=== PATIENT | male | born 1985 | race African-American/Black ===

== ENCOUNTER 2018-02-03 18:42 | Emergency (ER) | payer MEDICAID, OTHER ==
[~2018-02-03] VITALS: Ht 182.9 cm; Wt 68.0 kg
[2018-02-03 18:47] VITALS: BP 115/84
[2018-02-03] MEDS ORDERED: PSEUDOEPHEDRINE HCL 30MG TABLET PO ONE (20:15)
[2018-02-03] MEDS ORDERED: IBUPROFEN 600MG TABLET PO ONE (20:15)
[2018-02-03] MEDS ORDERED: AMOXICILLIN/POTASSIUM CLAVULANATE 875/125MG TAB PO ONE (20:15)
[2018-02-03] MEDS ORDERED: NEOMYCIN-POLYMYXIN B-HYDROCORTISONE 1% OTIC SOLN 10ML LEFT EAR ONE (20:15)
== END 2018-02-03 21:40 | disposition home or self-care (01) ==
LOC: ER 18:42
DX: J02.9 Acute pharyngitis, unspecified (principal); H65.191 Other acute nonsuppurative otitis media, right ear; F12.10 Cannabis abuse, uncomplicated
CPT/HCPCS: 99284

== ENCOUNTER 2019-02-19 18:20 | Emergency (ER) | payer SELFPAY ==
[~2019-02-19] VITALS: Ht 175.3 cm; Wt 61.0 kg
[2019-02-19] MEDS ORDERED: SODIUM CHLORIDE 0.9% 1,000 ML IV ONE (21:02)
[2019-02-19] MEDS ORDERED: ONDANSETRON HCL 4MG/2ML INJ IV STA (21:02)
[2019-02-19] MEDS ORDERED: METOCLOPRAMIDE HCL 10MG/2ML VIAL IV STA (21:02)
[2019-02-19 21:47] LABS: BASOPHILS % 1.7 % (0.0-2.0); EOSINOPHILS % 1.5 % (0.0-5.0); HEMATOCRIT. 39.6 % (42.0-52.0); HEMOGLOBIN. 13.9 g/dL (14.0-18.0); LYMPHOCYTES % 38.4 % (20.0-50.0); MEAN CORPUSCULAR HEMOGLOBIN 35.6 pg (28.0-32.0); MEAN CORPUSCULAR VOLUME 101.7 fL (80.0-94.0); MONOCYTES % 9.5 % (2.0-8.0); NEUTROPHILS % 48.9 % (40.0-76.0); PLATELET 188 x1000/uL (130-400); RED CELL DISTRIBUTION WIDTH 12.2 % (11.6-14.6)
[2019-02-19 21:49] LABS: CHLORIDE 104 mEq/L (98-107)
[2019-02-19 21:52] LABS: ETHANOL BLOOD < 10 mg/dL
[2019-02-19 21:56] LABS: INR 1.2; PROTHROMBIN TIME 12.7 sec (9.6-11.0)
[2019-02-19 22:37] LABS: *AMPHETAMINES SCREEN URINE NEGATIVE (NEGATIVE); *BARBITURATES SCREEN URINE NEGATIVE (NEGATIVE); *BENZODIAZEPINES SCREEN URINE NEGATIVE (NEGATIVE); *COCAINE SCREEN URINE PRESUMTIVE POSITIVE (NEGATIVE)
[2019-02-19 22:38] LABS: CANNABINOID URINE SCREEN PRESUMTIVE POSITIVE (NEGATIVE); METHADONE URINE SCREEN NEGATIVE (NEGATIVE); OPIATES URINE SCREEN NEGATIVE (NEGATIVE); PHENCYCLIDINE URINE SCREEN NEGATIVE (NEGATIVE)
[2019-02-19 23:12] LABS: CLARITY URINE CLEAR (CLEAR); COLOR URINE ORANGE (YELLOW); KETONES URINE NEGATIVE (NEGATIVE); LEUKOCYTE ESTERASE URINE 1+ (NEGATIVE); NITRITE URINE POSITIVE (NEGATIVE); OCCULT BLOOD URINE NEGATIVE (NEGATIVE); PROTEIN URINE TRACE (NEGATIVE); SPECIFIC GRAVITY URINE 1.038 (1.005-1.030)
[2019-02-19] MEDS ORDERED: CEFTRIAXONE 1,000 MG in DEXTROSE 5% WATER 50 ML IV SCH (23:20)
[2019-02-20 00:14] VITALS: BP 111/83
== END 2019-02-20 00:25 | disposition home or self-care (01) ==
LOC: ER 19:53
DX: N39.0 Urinary tract infection, site not specified (principal); F12.10 Cannabis abuse, uncomplicated; R11.10 Vomiting, unspecified
CPT/HCPCS: 36415; 74176; 80053; 80305; 80320; 81003; 83690; 85025; 85610; 96365; 96375; 99284; J0696; J2405; J2765; J7030; J7060; Z7610; G0480

== ENCOUNTER 2022-04-12 18:07 | Emergency (ER) | payer OTHER ==
[~2022-04-12] VITALS: Ht 182.9 cm; Wt 59.0 kg
[2022-04-12 22:43] LABS: HEMATOCRIT 41.1 % (42.0-52.0); HEMOGLOBIN 14.2 g/dL (14.0-18.0)
[2022-04-13 00:11] VITALS: BP 108/77
== END 2022-04-13 00:12 | disposition home or self-care (01) ==
LOC: ER 18:07
DX: K62.5 Hemorrhage of anus and rectum (principal); F12.10 Cannabis abuse, uncomplicated; K59.00 Constipation, unspecified; F10.229 Alcohol dependence with intoxication, unspecified; Y90.0 Blood alcohol level of less than 20 mg/100 ml
CPT/HCPCS: 36415; 85014; 85018; 99283

== ENCOUNTER 2022-09-04 12:46 | Emergency (ER) | payer OTHER ==
[~2022-09-04] VITALS: Ht 182.9 cm; Wt 73.0 kg
[2022-09-04] MEDS ORDERED: DOXY150T5 MT (14:09)
[2022-09-04] MEDS ORDERED: CEFTRIAXONE SODIUM 500 MG/VIAL IM ONE (14:15)
[2022-09-04 14:26] LABS: CLARITY URINE CLEAR (CLEAR); COLOR URINE YELLOW (YELLOW); KETONES URINE TRACE (NEGATIVE); LEUKOCYTE ESTERASE URINE NEGATIVE (NEGATIVE); NITRITE URINE NEGATIVE (NEGATIVE); OCCULT BLOOD URINE NEGATIVE (NEGATIVE); PROTEIN URINE NEGATIVE (NEGATIVE); SPECIFIC GRAVITY URINE 1.024 (1.005-1.030)
[2022-09-04] MEDS ORDERED: CEFTRIAXONE SODIUM 500 MG/VIAL IM NR (16:15)
[2022-09-04 16:20] VITALS: BP 118/85
== END 2022-09-04 16:22 | disposition home or self-care (01) ==
LOC: ER 12:46
DX: Z11.3 Encounter for screening for infections with a predominantly sexual mode of transmission (principal); F12.10 Cannabis abuse, uncomplicated
CPT/HCPCS: 81003; 87491; 87591; 96372; 99283; J0696